=== PATIENT | female | born 1990 ===

== ENCOUNTER → 2019-02-18 | Outpatient (CLI) | payer OTHER | END | disposition home or self-care (01) | LOC: PRENATAL 14:17 | DX: O99.212 Obesity complicating pregnancy, second trimester (principal); O99.89 Other specified diseases and conditions complicating pregnancy, childbirth and the puerperium; O35.3XX0 Maternal care for (suspected) damage to fetus from viral disease in mother, not applicable or unspecified ==

== ENCOUNTER 2019-06-21 05:08 | Inpatient (IN) | payer OTHER ==
[~2019-06-21] VITALS: Ht 165.1 cm; Wt 3.2 kg
[2019-06-21] MEDS ORDERED: PRENATAL TABLE1 EAC1 PO (05:44)
[2019-06-21] MEDS ORDERED: SYNTHROID75 MCG PO (05:44)
== END 2019-06-25 14:00 | disposition home or self-care (01) | DRG 788 ==
LOC: LDR 05:08 → OB/GYN 05:08
PROVIDERS: ADMIT Obstetrics & Gynecology
PROC: 4A1HXFZ Monitoring of Products of Conception, Cardiac Rhythm, External Approach (ICD-10-PCS; 2019-06-21)
PROC: 3E033VJ Introduction of Other Hormone into Peripheral Vein, Percutaneous Approach (ICD-10-PCS; 2019-06-21)
PROC: 10D00Z1 Extraction of Products of Conception, Low, Open Approach (ICD-10-PCS; principal; 2019-06-22 16:00)
DX: O61.0 Failed medical induction of labor (principal); O99.284 Endocrine, nutritional and metabolic diseases complicating childbirth; E03.9 Hypothyroidism, unspecified; O99.214 Obesity complicating childbirth; Z3A.39 39 weeks gestation of pregnancy; Z37.0 Single live birth